=== PATIENT | female | born 1985 | race Caucasian/White ===

== ENCOUNTER 2017-03-03 15:24 | Emergency (ER) | payer OTHER ==
[~2017-03-03] VITALS: Ht 149.9 cm; Wt 65.0 kg
[2017-03-03 15:31] VITALS: BP 110/73
== END 2017-03-03 16:46 | disposition home or self-care (01) ==
LOC: ED 15:24
DX: R11.10 Vomiting, unspecified (principal); R42 Dizziness and giddiness
CPT/HCPCS: Q0162

== ENCOUNTER 2017-03-10 11:26 | Emergency (ER) | payer OTHER ==
[2017-03-10 11:42] VITALS: BP 130/86
== END 2017-03-10 12:40 | disposition home or self-care (01) ==
LOC: ED 11:26
DX: J20.9 Acute bronchitis, unspecified (principal); J02.9 Acute pharyngitis, unspecified; I10 Essential (primary) hypertension
CPT/HCPCS: J7613; J7644